=== PATIENT | female | born 1945 | race Native Hawaiian/Other Pacific Islander ===

== ENCOUNTER 2017-11-27 09:05 | Outpatient (CLI) | payer OTHER, BC ==
[~2017-11-27 09:05] MED LIST: ALPR0.5T24 PO; ASA LO-DOSE81 MG PO; CITALOPRAM20 MG PO; DICL1GEL2 TOP; HYZAAR1 TA2 PO; LABETALOL200 MG PO; QUESTRAN4 G1 OR; SIMV40TA57 PO; Z-PAK PO
[2017-11-27 10:00] LABS: POTASSIUM 3.5 mmol/L (3.6-5.2)
== END 2017-11-27 22:04 | disposition home or self-care (01) ==
LOC: LABW 09:05
PROVIDERS: Physician Assistant
DX: Z01.818 Encounter for other preprocedural examination (principal)
CPT/HCPCS: 36415; 80053; 93005

== ENCOUNTER 2018-08-28 11:03 | Outpatient (CLI) | payer OTHER, BC | END 2018-08-28 22:38 | disposition home or self-care (01) | LOC: RAD 11:03 | DX: M25.571 Pain in right ankle and joints of right foot (principal); M25.572 Pain in left ankle and joints of left foot ==

== ENCOUNTER 2018-09-21 10:44 | Outpatient (CLI) | payer OTHER, BC | END 2018-09-21 21:53 | disposition home or self-care (01) | LOC: RAD 10:44 | DX: M54.5 Low back pain (principal) ==

== ENCOUNTER 2019-02-01 12:05 | Outpatient (CLI) | payer OTHER, BC | END 2019-02-01 22:49 | disposition home or self-care (01) | LOC: RAD 12:05 | DX: M25.511 Pain in right shoulder (principal); M25.512 Pain in left shoulder; M54.2 Cervicalgia ==

== ENCOUNTER 2019-06-04 09:54 | Outpatient (CLI) | payer OTHER, BC | END 2019-06-04 19:08 | disposition home or self-care (01) | LOC: MAMMO 09:54 | DX: Z13.820 Encounter for screening for osteoporosis (principal); Z12.31 Encounter for screening mammogram for malignant neoplasm of breast; N95.8 Other specified menopausal and perimenopausal disorders ==

== ENCOUNTER 2019-07-09 09:27 | Outpatient (CLI) | payer OTHER, BC | END 2019-07-09 19:40 | disposition home or self-care (01) | LOC: US 09:27 | DX: R92.8 Other abnormal and inconclusive findings on diagnostic imaging of breast (principal) ==

== ENCOUNTER 2020-01-27 14:06 | Outpatient (CLI) | payer OTHER, BC ==
[2020-01-27 14:43] LABS: PLATELET COUNT 396 K/uL (152-353)
[2020-01-27 15:47] LABS: POTASSIUM 4.1 mmol/L (3.6-5.2)
== END 2020-01-27 21:54 | disposition home or self-care (01) ==
LOC: LAB 14:06
PROVIDERS: Internal Medicine
DX: I10 Essential (primary) hypertension (principal); E03.8 Other specified hypothyroidism; E78.49 Other hyperlipidemia; M17.0 Bilateral primary osteoarthritis of knee; E55.9 Vitamin D deficiency, unspecified
CPT/HCPCS: 80053; 80061; 81000; 82306; 84439; 84443; 85027

== ENCOUNTER 2020-09-27 12:51 | Outpatient (CLI) | payer OTHER, BC | END 2020-09-27 19:57 | disposition home or self-care (01) | LOC: MAMMO 12:51 | PROVIDERS: ATTEND Internal Medicine | DX: Z12.31 Encounter for screening mammogram for malignant neoplasm of breast (principal); Z13.820 Encounter for screening for osteoporosis ==

== ENCOUNTER 2020-10-02 13:22 | Outpatient (CLI) | payer OTHER, BC | END 2020-10-02 22:16 | disposition home or self-care (01) | LOC: RAD 13:22 | PROVIDERS: ATTEND Physician Assistant | DX: M25.562 Pain in left knee (principal) ==

== ENCOUNTER 2021-07-09 11:08 | Outpatient (CLI) | payer OTHER, BC | END 2021-07-09 19:02 | disposition home or self-care (01) | LOC: RAD 11:08 | PROVIDERS: ATTEND Physician Assistant | DX: M54.2 Cervicalgia (principal); M25.511 Pain in right shoulder ==

== ENCOUNTER 2021-09-25 10:30 | Outpatient (CLI) | payer OTHER, BC ==
[~2021-09-25] VITALS: Ht 165.1 cm; Wt 95.3 kg
== END 2021-09-25 18:57 | disposition home or self-care (01) ==
LOC: INF 10:30
PROVIDERS: ATTEND Internal Medicine
DX: E86.0 Dehydration (principal); R11.0 Nausea
CPT/HCPCS: 96361; 96365; J2550

== ENCOUNTER 2021-10-16 11:13 | Outpatient (CLI) | payer OTHER, BC ==
[2021-10-16 12:02] LABS: PLATELET COUNT 407 K/uL (152-353)
[2021-10-16 13:03] LABS: POTASSIUM 4.2 mmol/L (3.6-5.2)
== END 2021-10-16 18:57 | disposition home or self-care (01) ==
LOC: LAB 11:13
PROVIDERS: ATTEND Internal Medicine
DX: A08.4 Viral intestinal infection, unspecified (principal); N39.0 Urinary tract infection, site not specified
CPT/HCPCS: 80053; 81000; 85027

== ENCOUNTER 2022-04-16 12:51 | Outpatient (CLI) | payer OTHER, BC ==
[2022-04-16 13:25] LABS: PLATELET COUNT 476 K/uL (152-353)
[2022-04-16 13:27] LABS: POTASSIUM 3.8 mmol/L (3.6-5.2)
== END 2022-04-16 21:07 | disposition home or self-care (01) ==
LOC: LAB 12:51
PROVIDERS: ATTEND Internal Medicine
DX: I10 Essential (primary) hypertension (principal); E03.8 Other specified hypothyroidism; E55.9 Vitamin D deficiency, unspecified; M17.0 Bilateral primary osteoarthritis of knee
CPT/HCPCS: 80053; 80061; 81002; 82306; 84439; 84443; 85027; 85652

== ENCOUNTER 2022-04-17 10:36 | Outpatient (CLI) | payer OTHER, BC | END 2022-04-17 23:24 | disposition home or self-care (01) | LOC: US 10:36 | PROVIDERS: ATTEND Internal Medicine | DX: R09.89 Other specified symptoms and signs involving the circulatory and respiratory systems (principal); Z12.31 Encounter for screening mammogram for malignant neoplasm of breast ==

== ENCOUNTER 2022-05-02 13:34 | Outpatient (CLI) | payer OTHER, BC | END 2022-05-02 22:09 | disposition home or self-care (01) | LOC: RAD 13:34 | PROVIDERS: ATTEND Internal Medicine | DX: R09.1 Pleurisy (principal) ==

== ENCOUNTER 2022-10-14 16:30 | Outpatient (CLI) | payer OTHER, BC | END 2022-10-14 19:01 | disposition home or self-care (01) | LOC: RAD 16:30 | PROVIDERS: ATTEND Internal Medicine | DX: J40 Bronchitis, not specified as acute or chronic (principal) ==

== ENCOUNTER 2022-12-02 11:01 | Outpatient (CLI) | payer OTHER, BC | END 2022-12-02 20:41 | disposition home or self-care (01) | LOC: RAD 11:01 | PROVIDERS: ATTEND Physician Assistant | DX: M25.561 Pain in right knee (principal); M25.562 Pain in left knee ==

== ENCOUNTER 2023-03-03 12:41 | Outpatient (CLI) | payer OTHER, BC ==
[2023-03-03 13:32] LABS: POTASSIUM 4.5 mmol/L (3.6-5.2)
== END 2023-03-03 21:31 | disposition home or self-care (01) ==
LOC: LAB 12:41
PROVIDERS: ATTEND Internal Medicine
DX: E78.49 Other hyperlipidemia (principal); I10 Essential (primary) hypertension; E03.8 Other specified hypothyroidism
CPT/HCPCS: 80053; 80061; 81002; 84439; 84443